=== PATIENT | male | born 1960 | race Caucasian/White ===

== ENCOUNTER 2024-03-14 10:04 | Outpatient (REF) | payer MEDICARE, SELFPAY | END 2024-03-14 10:05 | disposition home or self-care (01) | LOC: HO.HOSX 10:04 | PROVIDERS: Visit Provider Physician Assistant | DX: Z13.89 Encounter for screening for other disorder (principal) ==

== ENCOUNTER 2024-03-15 10:11 | Outpatient (AMB) | payer MEDICARE, SELFPAY ==
--- NOTE | 2024-03-15 10:15 | A.OFFVIS_ITS ---
Intake Visit Reasons: New Pt -Left hip pain Intake Note: Jay is a 63 year old male who presents today as a new patient for a evaluation of his left hip pain. Patient reports ongoing pain for about 2 months. He mentions that his pain is on the outer aspect of the hip but denies any radiating pain. Patient states that his pain is worse when he is walking and standing. Pt denies any previous injury, surgeries, or injections. Pt states he went to PT one time and wants to continue. Allergies No Known Allergies Allergy (Verified 03/15/24 10:25) [facility] HPI New Pt -Left hip pain: Details: 63-year-old male who presents in the office today, as a new patient, for an evaluation of left hip pain. The patient was seen by Dr. Jaki Cervantes on 02/14/24 for left hip pain. He mentions his pain alleviates with NSAIDs and aerobic activities. The referral notes noted the patient has had x-rays of the left hip which revealed degenerative changes and sclerotic lesion of the left ischium. He had a CT of the left hip that showed asymmetric abnormal thickening of the tissue surrounding the left hip extending into the left iliac with some stranding. He also had an MRI of the left hip which showed similar findings of CT scan. He was prescribed to start ibuprofen 600 mg PO one tablet TID. He was referred to [facility] for further evaluation and treatment. While in the office today, the patient reports persistent pain ongoing for the past 2 months. He mentions that his pain is on the outer aspect of the left hip. He denies any radiating pain from the hip. He reports worsening pain with ambulation and standing. He denies any previous injury, surgeries or receiving injections to the left knee. He mentions attending one session of physical therapy and would like to continue PT. Review of Systems Const All systems reviewed & are unremarkable except as noted in HPI and below Physical Exam Const General: cooperative and no acute distress Orientation/consciousness: patient oriented x3 Resp Effort & Inspection: normal respiratory effort and able to speak in complete sentences Cardio Peripheral pulses: Peripheral pulses 2+ throughout Skin General skin exam: no rashes or lesions noted Neuro General: patient oriented x3 Extrem Other: Left hip: Normal to inspection. No ecchymosis, erythema, or edema. Full hip ROM in all planes. No tenderness to palpation over the greater trochanteric bursa. 5/5 strength with resisted hip flexion, knee extension, abduction, and abduction. Able to perform straight leg raise. NVI. Assessment & Plan Assessment & Plan (1) Osteoarthritis of left hip: Code(s): M16.12 - Unilateral primary osteoarthritis, left hip Category: Medical Plan Mr. Blackwell is a 63-year-old male who presents in the office today, as a new patient, for an evaluation of left hip pain. The patient was seen by Dr. Jaki Cervantes on 02/14/24 for left hip pain. He mentions his pain alleviates with NSAIDs and aerobic activities. The referral notes noted the patient has had x- rays of the left hip which revealed degenerative changes and sclerotic lesion of the left ischium. He had a CT of the left hip that showed asymmetric abnormal thickening of the tissue surrounding the left hip extending into the left iliac with some stranding. He also had an MRI of the left hip which showed similar findings of CT scan. He was prescribed to start ibuprofen 600 mg PO one tablet TID. He was referred to [facility] for further evaluation and treatment. While in the office today, the patient reports persistent pain ongoing for the past 2 months. He mentions that his pain is on the outer aspect of the left hip. He denies any radiating pain from the hip. He reports worsening pain with ambulation and standing. He denies any previous injury, surgeries or receiving injections to the left knee. He mentions attending one session of physical therapy and would like to continue PT. The patient will continue with physical therapy. He would like to schedule intra-articular hip injection; therefore, I have placed an order for it today. We briefly discussed the role of surgical intervention; however, he would like to try conservative treatment at this time. He will follow-up completing his course of physical therapy should his left hip pain persists. Follow-up will be depending on the symptoms after completing physical therapy, or sooner if needed. X-rays of the left hip, which were obtained while in the office today and were reviewed by me, Mariam Mascorro PA-C, revealed: Osteoarthritis. Orders: Orders XR hip LT min 2V Today M25.559 - Pain in unspecified hip FL arthrogram hip LT Today M16.0 - Bilateral primary osteoarthritis of hip Patient Instructions: Scribed by Mayra Bill, medical office secretary, for Mariam Mascorro PA-C on 03/15/24 at 10:50 am EST. Coding Level of Care Code Est Pt Level 4 (11809) Diagnoses Osteoarthritis of left hip M16.12
== END 2024-03-15 10:35 | disposition home or self-care (01) ==
PROVIDERS: Visit Provider Physician Assistant
DX: M16.12 Unilateral primary osteoarthritis, left hip (principal)
CPT/HCPCS: 99214

== ENCOUNTER 2024-03-15 10:15 | Outpatient (REF) | payer MEDICARE, SELFPAY ==
--- NOTE | ~2024-03-15 | XR_ITS ---
EXAMINATION: XR HIP LEFT CLINICAL INFORMATION: Pain in unspecified hip M25.559. COMPARISON: None available TECHNIQUE: Three views of the left hip. FINDINGS: No fracture. Alignment is anatomic. Joint space narrowing and osteophyte formation is seen within the left hip joint space consistent with mild osteoarthritis. Soft tissues are unremarkable. XR/XR hip LT min 2V IMPRESSION: Mild osteoarthritis. Electronically signed by: Satya Miller MD 03/26/2024 01:00 PM [facility]
== END 2024-03-15 10:16 | disposition home or self-care (01) ==
LOC: HO.HOSX 10:15
PROVIDERS: Visit Provider Physician Assistant
DX: M25.569 Pain in unspecified knee (principal)
CPT/HCPCS: 73502; 99212

== ENCOUNTER 2024-04-01 13:50 | Outpatient (REF) | payer MEDICARE, SELFPAY ==
--- NOTE | ~2024-04-01 | FL_ITS ---
Fluoroscopic left hip steroid injection. Indications: Left hip pain. Intra-articular gadolinium injection is needed prior to MRI. Procedure: Risks and benefits and possible complications were discussed with the patient and the consent form was signed. The patient was placed hip on the fluoroscopy table. The left hip was prepped and draped in normal sterile fashion. 1% buffered lidocaine was used for anesthesia. A 22-gauge spinal needle was used to access the hip joint. Intra-articular position of the needle within the hip joint was verified using 3 cc of Omnipaque 300. A total of 80 mg Depo-Medrol and 5 cc 1% lidocaine was then injected into the hip joint. The needle was then removed and a Band-Aid was applied to the injection site. The patient tolerated the procedure well. There were no immediate complications. FL/FL arthrogram hip LT Impression: Successful fluoroscopic left hip intra-articular steroid injection. The procedure was performed by Michele Crockett PA-C, and directly supervised by Dr. Anne. Electronically signed by: Hamlet Anne MD 04/02/2024 01:56 PM [facility]
[2024-06-10] MEDS: iohexoL 300 MG/ML 50 ML INFUS..BTL INTRAARTIC (10:29)
[2024-06-10] MEDS: Lidocaine HCl 1 % MPF 30 ML VIAL 5 ML INTRAARTIC (10:30)
[2024-06-10] MEDS: methylPREDNISolone acetate 80 MG VIAL INTRAARTIC (10:31)
== END 2024-04-01 13:51 | disposition home or self-care (01) ==
LOC: HO.XRAY 13:50
PROVIDERS: PCP Hospitalist; Visit Provider Physician Assistant
DX: M16.12 Unilateral primary osteoarthritis, left hip (principal)
CPT/HCPCS: 20610; 27093; 73525; 77002; J1010; J2003; Q9967

== ENCOUNTER → 2024-04-01 13:52 | Outpatient (BNV) | payer MEDICARE, SELFPAY | PROVIDERS: PCP Hospitalist; Visit Provider Physician Assistant Surgical | DX: M16.12 Unilateral primary osteoarthritis, left hip (principal) | CPT/HCPCS: 27095; 73525 ==